=== PATIENT | female | born 1980 | race Two or more races ===

== ENCOUNTER 2017-05-22 19:58 | Emergency (ER) | payer OTHER ==
[~2017-05-22] VITALS: Ht 157.5 cm; Wt 113.4 kg
[~2017-05-22 19:58] MED LIST: METFORMIN HCL850 M1 ORAL; MULTIVITAMINS1 EAC2 ORAL
[2017-05-22 20:15] VITALS: BP 138/84
[2017-05-22] MEDS ORDERED: Norco 5mg/325mg tab ORAL ONE (20:30)
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
[2017-05-22] MEDS ORDERED: TYLENOL EXTRA500 MG ORAL (21:26)
[2017-05-22 21:30] VITALS: BP 138/84
--- NOTE | 2017-05-23 10:46 | Diagnostic Imaging Report ---
Indication: pain. Left hand pain Findings: 3 views of the left hand were obtained. Normal alignment is demonstrated. No acute fractures, erosions, or periosteal reaction are seen. Soft tissues are unremarkable. Impression: No acute findings.
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
== END 2017-05-22 21:40 | disposition home or self-care (01) ==
LOC: EDBD 19:58 → EEVIPCON 19:58 → EMR 20:25
DX: M79.642 Pain in left hand (principal); M25.571 Pain in right ankle and joints of right foot; V43.52XA Car driver injured in collision with other type car in traffic accident, initial encounter; Y92.414 Local residential or business street as the place of occurrence of the external cause; Z88.5 Allergy status to narcotic agent; I10 Essential (primary) hypertension; E11.9 Type 2 diabetes mellitus without complications
CPT/HCPCS: 99284